=== PATIENT | female | born 1980 | race Caucasian/White ===

== ENCOUNTER 2016-06-04 12:32 | Inpatient (IN) | payer BC ==
[~2016-06-04] VITALS: Ht 170.2 cm; Wt 73.0 kg
--- NOTE | ~2016-06-04 | OR ---
PATIENT'S NAME: PERFECTO RUST [facility] AGE: 36 Y [address] ROOM: [address] [address] LOCATION: [facility] ADMIT DATE: 06/04/2016 OR/Procedure Report DISCHARGE DATE: FAMILY PHYSICIAN: Romero Menon MD ATTENDING PHYSICIAN: Thom LEON SURGEON: Florina Potter MD COMMUNITY LEADER: DATE OF PROCEDURE: 06/07/2016 PROCEDURE PERFORMED: Colonoscopy with biopsies. INDICATION: Colitis on CT scan. MEDICATIONS: Please see anesthesiology record for details. CONSENT: The risks/benefits/alternatives were discussed, and the patient or her power of insurance defense attorney expressed understanding and agreed to proceed. Informed consent was obtained and placed on the chart. Time-out was completed prior to starting the procedure. DESCRIPTION OF PROCEDURE: The patient was placed in the left lateral decubitus position. One lead EKG monitoring was used along with intermittent blood pressure monitoring and pulse oximetry. The above medications were given and titrated to response. Once adequate sedation was completed, rectal exam was performed. The colonoscope was then passed through the rectum, into the sigmoid colon. The scope was then passed through the descending, transverse, and ascending colon. The scope was then passed into the cecum. The cecum was identified by the ileocecal valve and appendiceal orifice. The scope was then withdrawn. On withdrawal, the mucosa of the colon was examined. In the rectum, retroflexion was completed. The scope was then withdrawn from the patient. The patient tolerated the procedure well. There were no complications. SUMMARY OF FINDINGS: 1. In the cecum and ascending colon, there was evidence of significant erythema without ulceration. Multiple biopsies were taken to evaluate for underlying chronic colitis. 2. The terminal ileum was intubated and was normal. 3. Majority of the transverse colon and left colon were normal. There were 2 small patches of erythema seen, not as significant as noted in the right colon. Biopsies were taken from the right colon, left colon, and rectum. 4. Internal hemorrhoids, small, nonbleeding. 5. A 3 mm sessile rectal polyp, removed using biopsy forceps. There was persistent oozing of bright red blood post polypectomy. Therefore, a PATIENT'S NAME: PERFECTO RUST [facility] AGE: 36 Y [address] ROOM: [id number] [place], [place] [address] LOCATION: [facility] ADMIT DATE: 06/04/2016 OR/Procedure Report DISCHARGE DATE: FAMILY PHYSICIAN: Romero Menon MD ATTENDING PHYSICIAN: Thom LEON Hemoclip was paced, and no further bleeding was noted. ASSESSMENT AND PLAN: Colitis: I suspect the patient's colitis is most likely an infectious colitis. I have started her on Cipro and Flagyl and will see how she does over the next couple of days. Crohn colitis is also a possibility; however, it seems less likely at this time. Okay to advance diet as tolerated. J KELLY POTTER MD JRT/modl /[id number] d: 06/07/16 1622 t: 06/10/16 1428, OPERATIVE SUMMARY
--- NOTE | ~2016-06-04 | ER ---
PATIENT'S NAME: PERFECTO RUST [facility] AGE: 36 Y [address] ROOM: [place] [address] LOCATION: [facility] ADMIT DATE: 06/04/2016 ER/Outpatient Report DISCHARGE DATE: FAMILY PHYSICIAN: PHYSICIAN, UNKNOWN ATTENDING PHYSICIAN: Thom LEON Time of Evaluation: 1245 hours. CHIEF COMPLAINT: Abdominal pain, diarrhea. HISTORY OF PRESENT ILLNESS: The patient is a 36-year-old white female, whose symptoms began last Friday, which included abdominal pain, diarrhea. The patient was seen yesterday at [facility] and was diagnosed with suspected colitis, was put on prednisone and Bentyl. The patient has had an escalation of her symptoms. She also states that she has developed a bloody diarrhea. ALLERGIES: NONE. HOME MEDICATIONS: None. MEDICAL HISTORY: No chronic diseases. She said she has been to [place] on 2 other occasions with abdominal pain and diarrhea, but symptoms usually only lasted a day or two. SURGERIES: She has had 4 C sections, cholecystectomy, partial hysterectomy, and a scope for adhesions. SOCIAL HISTORY: . Nonsmoker. Denies any extensive alcohol use. REVIEW OF SYSTEMS: GENERAL: Today, some chills but no documented fevers. HEENT: No recent headache or sore throat. RESPIRATORY: Denies shortness of breath or cough. CARDIOVASCULAR: Denies any heart palpitations, chest pain. GASTROINTESTINAL: Includes diffuse abdominal pain with bloody diarrhea. Denies weight loss. GENITOURINARY: No dysuria. No flank pain. SKIN: No history of any open sores or rash. PATIENT'S NAME: PERFECTO RUST [facility] AGE: 36 Y [address] ROOM: [address] [address] LOCATION: [facility] ADMIT DATE: 06/04/2016 ER/Outpatient Report DISCHARGE DATE: FAMILY PHYSICIAN: PHYSICIAN, UNKNOWN ATTENDING PHYSICIAN: Thom LEON PHYSICAL EXAMINATION: VITAL SIGNS: On exam, her blood pressure was stable at 127/77, she had a temperature 98.8, her respiratory rate was 16, pulse 91, O2 sats 98%. GENERAL APPEARANCE: She appeared holding her stomach, in some moderate distress, appeared well nourished, oriented. HEAD: Normocephalic. EYES: PERRLA. There is no presence of icterus. NOSE: Septum midline. MOUTH: Teeth in good repair. Oral membranes were moist. NECK: No jugular venous distention or adenopathy present. LUNGS: Clear bilaterally. HEART: No murmurs, thrills, gallop. ABDOMEN: She had scars from her previous surgery, somewhat diffuse tenderness. Bowel sounds were somewhat hypoactive. SKIN: Warm and dry. LABORATORY DATA AND X-RAYS: Her urine was clear. test serum negative. Her CMS, she had slightly low calcium at 8.3, otherwise unremarkable. CBC: White count 10.8, hemoglobin 13.6, her ANC was 9.7. Her CT abdomen and pelvis with IV contrast did show a diffuse colitis. Radiologist thought it appeared infectious. ASSESSMENT: 1. Severe colitis. 2. Status post partial hysterectomy, cholecystectomy. PLAN AND TREATMENT: In the emergency room, she was given 2 L of fluid, Zofran 4 mg IV. Pain was controlled with morphine 2 mg initially, was repeated x2. The patient will be admitted by the Hospitalist Service for further workup and treatment. BERNABE PROCTOR FOR MD CINDY MUSA/shannon /[id number] d: 06/04/16 2221 t: 06/12/16 0609, OUTPATIENT REPORT
--- NOTE | ~2016-06-04 | CON ---
PATIENT'S NAME: PERFECTO RUST [facility] AGE: 36 Y [address] ROOM: [address] [address] LOCATION: N ADMIT DATE: 06/04/2016 Consultation DISCHARGE DATE: FAMILY PHYSICIAN: PHYSICIAN, UNKNOWN ATTENDING PHYSICIAN: Thom HASSAN DATE OF CONSULTATION: 06/04/2016 REFERRING PHYSICIAN: MARIO VINES MD REFERRING PROVIDER: Dr. Hassan. REASON FOR CONSULTATION: Hematochezia, possible colitis via CT scan. HISTORY OF PRESENT ILLNESS: This is a very pleasant, 36-year-old female with no past medical history. The patient states that she began having lower abdominal pain on Tuesday, May 31, 2016. At that time, she described the pain as burning and diffuse. She subsequently began having watery diarrhea. However, on Thursday, June 02, 2016, she started experiencing increased number of bowel movements with noted bright red blood within her diarrhea. She presented to the [facility] for further investigation as an x-ray was obtained, and the patient was given prednisone and Bentyl for possible colitis and sent home. She then followed up as the bloody diarrhea continued. She also reported having night sweats and continued diffuse abdominal pain, though the pain is greater in the lower abdomen versus upper abdomen. She denies any nausea or vomiting. She also states that if she ingested anything, even water, it "runs right through her." She has had intermittent abdominal pain over the past 2 years with some noted diarrhea, though this episode has been much worse, per her recollection. The patient currently denies any chest pain, chest pressure, shortness of breath, acute fever, chills, nausea, vomiting, or kareem abdominal bloating. PAST MEDICAL HISTORY: Intermittent abdominal pain. PAST SURGICAL HISTORY: The patient had hysterectomy, exploratory abdominal surgery for abdominal pain secondary to adhesions, and . SOCIAL HISTORY: The patient denies any smoking or alcohol use. 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 She is and has 4 children. FAMILY HISTORY: PATIENT'S NAME: PERFECTO RUST [facility] AGE: 36 Y [address] ROOM: [address] [address] LOCATION: N ADMIT DATE: 06/04/2016 Consultation DISCHARGE DATE: FAMILY PHYSICIAN: PHYSICIAN, UNKNOWN ATTENDING PHYSICIAN: Thom HASSAN Significant for thyroid disease. She denies any inflammatory bowel disease or known gastrointestinal diseases, per her recollection. ALLERGIES: NO KNOWN MEDICATION ALLERGIES. CURRENT MEDICATIONS: Please refer to the medication administration record. REVIEW OF SYSTEMS: A 10-point review of systems was completed. All were negative except for those identified in the History of Present Illness. PHYSICAL EXAMINATION: GENERAL: A very pleasant, 36-year-old female, lying in bed, who appears to be in mild acute distress secondary to abdominal pain. VITAL SIGNS: Temperature 98.2, pulse of 67, respirations of 16, blood pressure 112/67, and oxygen saturation is 98% on room air. SKIN: [place], warm, and dry. No jaundice. HEENT: Head is normocephalic and atraumatic. Pupils are equal, round, and reactive to light. Sclerae are clear, nonicteric. Oral mucosa is pink and moist. No thyromegaly. NECK: Soft and supple. CARDIOVASCULAR: Regular. Normal S1 and S2. RESPIRATORY: Respirations even and unlabored. Lungs are clear to auscultation. ABDOMEN: Soft and round. Significantly tender in the bilateral lower quadrants. She does complain of some diffuse abdominal pain in her upper quadrants as well as her mid epigastric area, though her lower quadrant is significantly worse than her upper. Bowel sounds positive x4 quadrants. MUSCULOSKELETAL: No muscle weakness or atrophy. EXTREMITIES: No clubbing, cyanosis, or edema. NEUROLOGICAL: Grossly nonfocal. LABORATORY AND DIAGNOSTIC DATA: The patient has a white blood cell count of 7.8, hemoglobin of 13.6, hematocrit of 40.3, and platelets of 190. Chemistry panel includes a glucose of 83, BUN of 12, creatinine of 0.8, sodium 138, potassium 3.8, chloride of 104, and CO2 of 24. Liver enzymes are all within normal limits. ESR of 16. CRP elevated at 4.49. Lipase of 85. The patient also underwent a CT on admission. This did show long segmental colitis, most prominent at the cecum, most likely infectious versus inflammatory bowel, or ischemic colitis less likely. ASSESSMENT AND PLAN: PATIENT'S NAME: PERFECTO RUST [facility] AGE: 36 Y [address] ROOM: [place] [id number] LOCATION: [facility] ADMIT DATE: 06/04/2016 Consultation DISCHARGE DATE: FAMILY PHYSICIAN: PHYSICIAN, UNKNOWN ATTENDING PHYSICIAN: Thom HASSAN Again, this is a very pleasant, 36-year-old female who was recently admitted with acute abdominal pain as well as hematochezia. At this time, a CT scan was completed on admission showing long segmental colitis, most likely infectious. She will be placed on Ciprofloxacin as well as Flagyl empirically. We will also check stool studies to rule out infectious process as well as underlying Clostridium difficile. At this time, the patient may need a colonoscopy for further evaluation of the noted colitis per CT scan, though this will be placed on hold for a few days until the patient's pain has become much more manageable. Further recommendations to be given over the course of the patient's inpatient hospital stay. Thank you for this consult and allowing us to participate in the care of this patient. ESTEBAN BASHIR APRN FOR MD CONRADO MCCARTNEY/modl /[id number] d: 06/05/16 1224 t: 06/17/16 1150, CONSULTATION REPORT
--- NOTE | ~2016-06-04 | HP ---
PATIENT'S NAME: PERFECTO RUST [facility] AGE: 36 Y [address] ROOM: [id number] [place], [place] [address] LOCATION: [facility] ADMIT DATE: 06/04/2016 History & Physical DISCHARGE DATE: FAMILY PHYSICIAN: PHYSICIAN, UNKNOWN ATTENDING PHYSICIAN: Thom LEON DATE OF SERVICE: CHIEF COMPLAINT: Bloody diarrhea. HISTORY OF PRESENT ILLNESS: The patient is a 36-year-old female with no significant past medical history, who presents here with bloody diarrhea. The patient reports that she first experienced lower abdominal pain on Friday, May 31. The patient reports that her abdominal pain as burning and diffuse. Subsequently, the patient started experiencing watery diarrhea. However, on June 02, she started experiencing worsening of diarrhea with now involvement of bloody diarrhea. The patient went to [facility] for further investigation and care. On an initial evaluation there, the patient had an x-ray of her abdomen and was discharged home on prednisone and Bentyl for possible colitis. The patient's symptoms did not improve and started having more frequent diarrhea with continuous bloody diarrhea, which led her to come to our emergency department for further investigation. The patient reports some night sweats and continuing diffuse abdominal pain, now involvement of every quadrant of abdomen. Pain greater in the lower abdomen. The patient denies nausea, vomiting, sick contacts, recent travel, and drinking fresh water. However, the patient drinks from well water. However, every member of the family also drinks from well water and does not have this symptom. The patient also reports prior history of close to 2-year history of intermittent abdominal pain and diarrhea and has not had any workup done in the past. The patient denies eye pain, change in vision, skin lesions, or arthritis. MEDICAL HISTORY: No significant medical history. SURGICAL HISTORY: The patient has had hysterectomy, exploratory abdominal surgery for abdominal pain and was noted to be secondary to adhesions, and . FAMILY HISTORY: Thyroid disease. SOCIAL HISTORY: The patient denies smoking and alcohol use. 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 ROOM: [id number] [place], [place] [address] LOCATION: [facility] ADMIT DATE: 06/04/2016 History & Physical DISCHARGE DATE: FAMILY PHYSICIAN: PHYSICIAN, UNKNOWN ATTENDING PHYSICIAN: Thom LEON department store. MEDICATIONS: The patient is on, 1. Prednisone. 2. Bentyl. REVIEW OF SYSTEMS: All systems have been reviewed and are negative except for what is mentioned in HPI. PHYSICAL EXAMINATION: VITAL SIGNS: Temperature 98.8, blood pressure 127/77, pulse rate of 91, respiratory rate of 16, and saturating 98% on room air. GENERAL APPEARANCE: The patient is alert and awake, in no acute distress. HEENT: Head: Normocephalic, atraumatic. Eyes: Extraocular muscles are intact. Nose: No nasal discharge. Ears: No ear discharge. NECK: No JVD. Supple. CHEST: Clear to auscultation bilaterally. HEART: Regular rate and rhythm. No murmurs, rubs, or gallops heard. ABDOMEN: Mild diffuse tenderness. No rebound. No guarding. Bowel sounds present. No distention. SKIN: Warm to touch. No skin lesions present. MUSCULOSKELETAL: No joint effusion or arthritic changes. Range of motion intact. CHEMOTHERAPIST: The patient is alert and oriented x3. Motor and sensory grossly intact. LABORATORY DATA: White blood cell count of 10.8, hemoglobin of 13.6, and hematocrit of 40.3. BUN of 12, creatinine 0.8, and potassium 3.8. Image: CT of the abdomen with contrast shows low segment colon thickening involving thickened ascending colon, transverse colon, and descending colon, most prominent on the right side. ASSESSMENT AND PLAN: The patient is a 36-year-old female with some intermittent history of abdominal pain and diarrhea, who now presents here with 4-5 days history of abdominal pain with involvement of bloody diarrhea with subsequent bloody diarrhea, who presents here for further investigation. Etiology most likely secondary to colitis, as CT image shows pancolitis involving the cecum, ascending, transverse, and descending. Etiology, infectious versus ischemic. Also inflammatory is entertained, as the patient has had some prior history of abdominal pain and diarrhea. We will acquire C. diff to rule out an infection and also stool culture. We will also acquire ESR and CRP. In terms of PATIENT'S NAME: PERFECTO RUST [facility] AGE: 36 Y [address] ROOM: [address] [address] LOCATION: [facility] ADMIT DATE: 06/04/2016 History & Physical DISCHARGE DATE: FAMILY PHYSICIAN: PHYSICIAN, UNKNOWN ATTENDING PHYSICIAN: Thom LEON infectious, highly unlikely as the patient does not have any comorbidities that will put her at risk for ischemic colitis with pancolitis involving the SMA and ERIKA at the same time. Thus, we will treat the patient for infectious colitis with Cipro and Flagyl. Start the patient on clear liquids. Continue IV fluids. We will also consult GI for possible colonoscopy in the near future as the patient might benefit from a colonoscopy to rule out inflammatory disease. Greater than 30 minutes was spent on the patient's care. Case was discussed with GI and the patient. The patient's questions were answered satisfactorily. We will admit the patient for IV antibiotics, pain control, and IV fluids. MD DEMETRIA RIEDR/modl /[id number] D: [id number] T: [id number] HISTORY & PHYSICAL
--- NOTE | ~2016-06-04 | DS ---
PATIENT'S NAME: PERFECTO RUST [facility] AGE: 36 Y [address] ROOM: [id number] [place], [place] [address] LOCATION: [facility] ADMIT DATE: 06/04/2016 Discharge Summary DISCHARGE DATE: 06/08/2016 FAMILY PHYSICIAN: Romero Menon MD ATTENDING PHYSICIAN: Thom LEON PRINCIPAL DIAGNOSIS: Infectious colitis. HOSPITAL COURSE: A 36-year-old lady with no significant past medical history, was admitted to [facility] after many days of bloody diarrhea. She also had fever. She was started on intravenous fluid resuscitation as well as antibiotics that include ciprofloxacin and Flagyl. She had a protracted hospital course with slow improvement. Gastroenterology consultation was made. The patient underwent colonoscopy which did show evidence of colitis, which was likely infectious. Biopsy is still pending. By the end of the hospital course, she was tolerating food and diarrhea had subsided. GI cleared her to go home. She will have Flagyl and ciprofloxacin for 3 more days. DISCHARGE MEDICATION: Include, 1. Metronidazole 500 mg p.o. q.8 hours for 3 more days. 2. Ciprofloxacin 500 mg p.o. b.i.d. for 3 more days. 3. Florastor 250 mg p.o. b.i.d. for 3 more days. ACTIVITY: As tolerated. DIET: As tolerated. FOLLOWUP: With primary care physician in 1 week if the condition does not improve. MD SAV PETERSON/shannon /[id number] d: 06/09/163 t: 06/09/16 1517, DISCHARGE SUMMARY
[2016-06-04 13:03] LABS: BASOPHIL % 0.1 %; HEMATOCRIT 40.3 % (33.0-46.0); HEMOGLOBIN 13.6 g/dL (11.0-15.0); IMMATURE GRANULOCYTE % 0.3 %; LYMPHOCYTE # 0.8 K/uL (0.8-4.0); MCH 29.7 pg (27.0-34.0); MCHC 33.7 gm/dL (32.0-36.5); MONOCYTE # 0.3 K/uL (0.0-1.0); MPV 9.3 fl (9.4-12.4); NEUTROPHIL # (ANC) 9.7 K/uL (1.8-7.8); NEUTROPHIL % 89.6 %; NRBC % 0 /100WBC (0-0.00); PLATELET COUNT 190 K/uL (150-450); RBC 4.58 M/uL (3.50-5.50); RDW-CV 12.2 % (11.9-14.6); WBC 10.8 K/uL (4.0-11.0)
[2016-06-04 13:18] LABS: ALBUMIN 3.6 gm/dL (3.5-5.0); ALK PHOS 61 IU/L (33-138); ALT 18 IU/L (12-78); ANION GAP 13.8 (10.0-19.0); AST 13 IU/L (10-40); BLOOD UREA NITROGEN 12 mg/dL (6-24); CALCIUM 8.3 mg/dL (8.5-10.5); CHLORIDE 104 mMol/L (96-110); CO2 24 mMol/L (22-32); CREATININE 0.8 mg/dL (0.5-1.1); ESTIMATED GFR (MDRD EQUATION) > 60; POTASSIUM 3.8 mMol/L (3.7-5.1); SODIUM 138 mMol/L (135-145); TOTAL BILIRUBIN 0.5 mg/dL (0.0-1.5); TOTAL PROTEIN 7.3 g/dL (6.0-8.4)
[2016-06-04 14:04] LABS: BILIRUBIN URINE NEGATIVE (NEGATIVE); BLOOD URINE 10 /UL (NEGATIVE); COLOR URINE YELLOW (YELLOW); GLUCOSE URINE NEGATIVE (NEGATIVE); KETONE URINE 150 mg/dL (NEGATIVE); LEUKOCYTES URINE NEGATIVE /UL (NEGATIVE); NITRITE URINE NEGATIVE (NEGATIVE); PROTEIN URINE 15 mg/dL (NEGATIVE); TURBIDITY URINE CLEAR (CLEAR); UROBILINOGEN URINE NORMAL (NORMAL)
[2016-06-04 14:11] LABS: RBC URINE 0-2 #/HPF (NEGATIVE); WBC URINE RARE #/HPF (NEGATIVE)
[2016-06-04 14:12] LABS: BACTERIA URINE NEGATIVE (NEGATIVE)
[2016-06-04] MEDS ORDERED: TYLENOL EXTRA500 MG PO (16:35)
[2016-06-04] MEDS ORDERED: BENTYL10 MG PO (16:40)
[2016-06-04] MEDS ORDERED: DELTASONE10 MG PO (16:47)
--- NOTE | 2016-06-04 17:09 | NUR ---
Pt is 36 y/o female for abdominal pain,cramping,N/V for hospitalist. Pt alert and oriented x3. No allergies. Resides at home with her and children. Came through ED. Pt states her abd pain and diarrhea started on Friday morning and continued to get worse all weekend. By Friday she noticed some blood in her diarrhea stools. She also reports some chills and night sweats in the past few days. Plan is for GI consult and probable colonoscopy.
--- NOTE | 2016-06-04 18:08 | NUR ---
Significant Event: Pt AOx3. VSS, CSM WNL. IV to left wrist. C/O abdominal pain and cramping. Taking clear liquid fluids. IV antibiotics initiated. Needs C-diff stool sample. Voided in ER without difficulty, UA negative. Up with SBA, gait belt. Had morphine in ER. Can have next around 1900. Very pleasant and cooperative with cares. Follow up:
--- NOTE | 2016-06-05 05:24 | NUR ---
Pt complains of abdominal pain. Isolation precaution for C.diff discontinued. Exact cause of illness not yet determined.
[2016-06-05 05:30] LABS: BASOPHIL % 0.3 %; EOSINOPHIL # 0.1 K/uL (0.0-0.5); EOSINOPHIL % 0.7 %; HEMATOCRIT 33.5 % (33.0-46.0); HEMOGLOBIN 11.2 g/dL (11.0-15.0); IMMATURE GRANULOCYTE % 0.3 %; LYMPHOCYTE # 1.8 K/uL (0.8-4.0); LYMPHOCYTE % 25.9 %; MCH 29.6 pg (27.0-34.0); MCHC 33.4 gm/dL (32.0-36.5); MCV 88.6 fl (83.0-98.0); MONOCYTE # 0.7 K/uL (0.0-1.0); MONOCYTE % 9.2 %; MPV 9.4 fl (9.4-12.4); NEUTROPHIL # (ANC) 4.5 K/uL (1.8-7.8); NEUTROPHIL % 63.6 %; NRBC % 0 /100WBC (0-0.00); PLATELET COUNT 154 K/uL (150-450); RBC 3.78 M/uL (3.50-5.50); RDW-CV 12.3 % (11.9-14.6)
--- NOTE | 2016-06-05 06:08 | NUR ---
I have reviewed all of SN Marian from [facility]'s charting on this patient and I agree with it.
--- NOTE | 2016-06-05 12:15 | NUR ---
Introduced self/role to patient and her [place], they live in [place]. They could not think of any discharge needs or resources that would be needed. Added my name to her marker board, will continue to follow.
--- NOTE | 2016-06-05 17:06 | NUR ---
Significant Event: PATIENT ALERT AND ORIENTED X3. C/O R) MID/LOWER ABDOMEN PAIN, TENDER TO TOUCH, RECEIVED MORPHINE 2MG IV X2 LAST AT 1231. BOWEL SOUNDS PRESENT, PATIENT HAS HAD LOOSE BM'S X3. AMBULATED IN SOLIS AND UP TO BATHROOM INDEPENDENTLY. Follow up:
--- NOTE | 2016-06-06 02:47 | NUR ---
Shift Summary: Patient independent in the room. Abd pain improving. Has not had any morphine this shift. Loose brown stools x 2 this shift. Waiting to have colonoscopy.
[2016-06-06 05:48] LABS: HEMATOCRIT 32.7 % (33.0-46.0); HEMOGLOBIN 10.9 g/dL (11.0-15.0); MCH 29.7 pg (27.0-34.0); MCHC 33.3 gm/dL (32.0-36.5); MCV 89.1 fl (83.0-98.0); MPV 9.2 fl (9.4-12.4); PLATELET COUNT 145 K/uL (150-450); RBC 3.67 M/uL (3.50-5.50); RDW-CV 12.2 % (11.9-14.6)
[2016-06-06 06:02] LABS: ALBUMIN 2.5 gm/dL (3.5-5.0); ANION GAP 11.6 (10.0-19.0); BLOOD UREA NITROGEN 4 mg/dL (6-24); CALCIUM 7.5 mg/dL (8.5-10.5); CHLORIDE 111 mMol/L (96-110); CO2 25 mMol/L (22-32); CREATININE 0.5 mg/dL (0.5-1.1); ESTIMATED GFR (MDRD EQUATION) > 60; MAGNESIUM 1.9 mg/dL (1.8-2.6); PHOSPHORUS 2.4 mg/dL (2.5-4.9); POTASSIUM 3.6 mMol/L (3.7-5.1); SODIUM 144 mMol/L (135-145)
[2016-06-06 06:27] LABS: ABSOLUTE NEUTROPHIL CT (ANC) 1.8 K/uL (1.8-7.8); BANDED NEUTROPHIL # 0.1 K/uL (0.0-0.1); BANDED NEUTROPHILS % 2 %; LYMPHOCYTE # 1.6 K/uL (0.8-4.0); LYMPHOCYTE % 41 %; MONOCYTE # 0.4 K/uL (0.0-1.0); SEGMENTED NEUTROPHIL # 1.8 K/uL (1.8-7.8); SEGMENTED NEUTROPHIL % 44 %
--- NOTE | 2016-06-06 17:40 | NUR ---
Significant Event: Independent in room. Denies pain. C/O abdomen feeling tender to touch. Loose BM X3 this shift. Clear liquid diet, no reds or purples. NPO after 0500 tomorrow for colonoscopy. Suprep Bowel Prep to start at 1800.
--- NOTE | 2016-06-07 05:25 | NUR ---
Pt NPO from 1700. Colonoscopy scheduled for today. Vs nader.
[2016-06-07 05:52] LABS: HEMATOCRIT 34.1 % (33.0-46.0); HEMOGLOBIN 11.5 g/dL (11.0-15.0); MCH 29.4 pg (27.0-34.0); MCHC 33.7 gm/dL (32.0-36.5); MCV 87.2 fl (83.0-98.0); MPV 8.8 fl (9.4-12.4); PLATELET COUNT 159 K/uL (150-450); RBC 3.91 M/uL (3.50-5.50); RDW-CV 12.2 % (11.9-14.6); WBC 5.3 K/uL (4.0-11.0)
[2016-06-07 06:32] LABS: ABSOLUTE NEUTROPHIL CT (ANC) 3.3 K/uL (1.8-7.8); LYMPHOCYTE # 1.5 K/uL (0.8-4.0); LYMPHOCYTE % 29 %; MONOCYTE # 0.4 K/uL (0.0-1.0); SEGMENTED NEUTROPHIL # 3.3 K/uL (1.8-7.8); SEGMENTED NEUTROPHIL % 62 %
--- NOTE | 2016-06-07 14:59 | NUR ---
Significant Event: Pt denies pain. Standby assist with ambulation. Had left for colonoscopy at 1030 back at 1300. Had 3 biopsy sites, 1 polp removed and clipped, and noted infection/colitis. VS stable. Zofran given this am for nausea. Had been taking in clear liquids slowly so far this afternoon, june ADAT. Started on oral ATB. Ambulated in adame this afternoon with standby assist. Had a small amt of rectal blood post surgery, endo nurse states its d/t polp that was bleeding and was clipped, will monitor. Follow up:
--- NOTE | 2016-06-07 15:00 | NUR ---
Followed up with patient. Still no concerns or needs. Obtained who her family doctor is, Dr. Romero Menon at [facility].
[2016-06-08 05:24] LABS: HEMATOCRIT 34.5 % (33.0-46.0); HEMOGLOBIN 11.7 g/dL (11.0-15.0); MCH 29.3 pg (27.0-34.0); MCHC 33.9 gm/dL (32.0-36.5); MCV 86.5 fl (83.0-98.0); MPV 9.2 fl (9.4-12.4); RBC 3.99 M/uL (3.50-5.50); RDW-CV 12.3 % (11.9-14.6); WBC 5.3 K/uL (4.0-11.0)
[2016-06-08 05:27] LABS: PLATELET COUNT 198 K/uL (150-450)
--- NOTE | 2016-06-08 05:34 | NUR ---
Significant Event: A/Ox3. Up ad bernadette in room. Denies pain. VSS. IV saline locked. Soft diet as tolerated. pleasant and cooperative with cares. Follow up:
[2016-06-08 06:01] LABS: ABSOLUTE NEUTROPHIL CT (ANC) 2.9 K/uL (1.8-7.8); BANDED NEUTROPHIL # 0.1 K/uL (0.0-0.1); BANDED NEUTROPHILS % 1 %; LYMPHOCYTE # 1.7 K/uL (0.8-4.0); LYMPHOCYTE % 33 %; MONOCYTE # 0.5 K/uL (0.0-1.0); SEGMENTED NEUTROPHIL # 2.8 K/uL (1.8-7.8); SEGMENTED NEUTROPHIL % 53 %
--- NOTE | 2016-06-08 10:10 | NUR ---
A - PT SCREENED D/T LOS. ADMITTED FOR COLITIS. S/P COLONOSCOPY. HT: 67" WT: 161# BMI: 25.2. LABS: K+ 3.6, BUN/CR 4/0.5, ALB 2.5, PHOS 2.4, CRP 4.49. MEDS: CIPRO, FLAGYL, PROTONIX, FLORASTOR, IVF, NAUSEA. DIET: REG. INTAKE: 25-50%. NEEDS: 9855-7402 KCAL (20-25 KCAL/KG), 73-88 G PRO (1-1.2 G/KG), 2190 ML FLUID (30 ML/KG). D - INADEQUATE NUTRIENT INTAKE R/T ALTERED GI FUNCTION, DECREASED APPETITE AEB INTAKE RECORD, RECENT NPO, CLEAR LIQUID DIETS, COLITIS. I - GOAL FOR INTAKE >50% BY NEXT ASSESSMENT. WILL ADD ENSURE @ B TO INC NUTRIENT INTAKE. M/E - WILL MONITOR INTAKE F/U IN 3-5 DAYS.
[2016-06-08] MEDS ORDERED: CIPRO500 MG PO (12:49)
[2016-06-08] MEDS ORDERED: FLAGYL500 MG PO (12:51)
[2016-06-08] MEDS ORDERED: FLORASTOR250 MG PO (12:53)
== END 2016-06-08 13:40 | disposition disaster alternative care site (69) | DRG 392 ==
LOC: GMED 12:32 → G3N 16:05
PROVIDERS: Emergency Medicine; Physician Assistant; Physician Assistant Medical; ADMIT Internal Medicine
PROC: 0DBF8ZX Excision of Right Large Intestine, Via Natural or Artificial Opening Endoscopic, Diagnostic (ICD-10-PCS; principal; 2016-06-07)
PROC: 0DBP8ZX Excision of Rectum, Via Natural or Artificial Opening Endoscopic, Diagnostic (ICD-10-PCS; 2016-06-07)
PROC: 0DBG8ZX Excision of Left Large Intestine, Via Natural or Artificial Opening Endoscopic, Diagnostic (ICD-10-PCS; 2016-06-07)
DX: A09 Infectious gastroenteritis and colitis, unspecified (principal); K51.00 Ulcerative (chronic) pancolitis without complications; D12.6 Benign neoplasm of colon, unspecified; D12.8 Benign neoplasm of rectum; K92.1 Melena; Z90.710 Acquired absence of both cervix and uterus; Z90.49 Acquired absence of other specified parts of digestive tract
CPT/HCPCS: J0744; J2270; J2405; J3480; J7030; Q9967